=== PATIENT | female | born 1940 | race Caucasian/White ===

== ENCOUNTER → 2018-05-15 | Outpatient (CLI) | payer MEDICARE, BC ==
[~2018-05-15] MED LIST: ASPI-621 PO; ATOR10TA9 PO; INSU100C5 SQ-INSULIN; INSU100V13 SC; LEVO25TA4 PO; LIRA0.6P SC; LOSA1TAB25 PO; MULT-516 PO; PSYL174P2 PO
[2018-05-15 12:48] LABS: INTERNATIONAL NORMALIZED RATIO 1.04 (0.93-1.1); PROTHROMBIN TIME 10.8 Seconds (9.6-11.5)
[2018-05-15 13:10] LABS: ALBUMIN 3.5 g/dL (3.4-5.0); ANION GAP 9 mmol/L (5-15); CHLORIDE 103 mmol/L (98-107)
[2018-05-15 13:13] LABS: ALANINE AMINOTRANSFERASE 40 U/L (12-78); ALKALINE PHOSPHATASE 68 U/L (45-117); BILIRUBIN,TOTAL 0.5 mg/dL (0.2-1.0); CREATININE 1.36 mg/dL (0.55-1.02)
== END | disposition home or self-care (01) ==
LOC: STAR 11:26
PROVIDERS: ATTEND Orthopaedic Surgery
DX: Z01.818 Encounter for other preprocedural examination (principal); M17.11 Unilateral primary osteoarthritis, right knee; M25.562 Pain in left knee
CPT/HCPCS: 36415; 80053; 83036; 85610; 85730; 87081; 87806; 93005; G0475

== ENCOUNTER 2018-05-28 06:28 | Inpatient (IN) | payer MEDICARE, BC ==
[~2018-05-28] VITALS: Ht 160 cm; Wt 97.4 kg
[~2018-05-28 06:28] MED LIST changes: -ASPI-621 PO; +ASPI81TA45 PO
[2018-05-28] MEDS ORDERED: LACTATED RINGERS 1,000 ML IV SCH (06:40)
[2018-05-28] MEDS ORDERED: MIDAZOLAM 1 MG/ML, 2ML ONE (06:42)
[2018-05-28] MEDS ORDERED: FENTANYL PF 250 MCG/5ML ONE (06:42)
[2018-05-28] MEDS ORDERED: LIDOCAINE JELLY 2%, 30GM ONE (06:43)
[2018-05-28] MEDS ORDERED: NS + 20MEQ KCL 1,000 ML IV SCH (06:47)
[2018-05-28] MEDS ORDERED: TRANEXAMIC ACID 100 MG/ML, 10ML ONE ×4 (06:54)
[2018-05-28] MEDS ORDERED: KETOROLAC 60 MG/2 ML ONE (06:54)
[2018-05-28] MEDS ORDERED: ROPIvacaine/PF 0.2%, 20 ML ONE (06:55)
[2018-05-28] MEDS ORDERED: VANCOMYCIN 1,000 MG ONE (06:55)
[2018-05-28] MEDS ORDERED: EPINEPHRINE 1 MG/ML, 1ML ONE (06:55)
[2018-05-28] MEDS ORDERED: SODIUM CHLORIDE 0.9% 100 ML ONE (06:56)
[2018-05-28] MEDS ORDERED: HYDROmorphone 1 MG/ML, 1ML IV PRN (07:00)
[2018-05-28] MEDS ORDERED: ONDANSETRON 2MG/ML, 2ML IV PRN ×2 (07:00→08:30)
[2018-05-28] MEDS ORDERED: SENNA/DOCUSATE TABLET PO PRN (07:00)
[2018-05-28] MEDS: INSULIN REGULAR 100 UNITS/ML, 3ML VIAL SQ-INSULIN SCH ×4 (07:00→20:17)
[2018-05-28] MEDS ORDERED: OXYcodone IR 5MG TABLET PO ONE (07:00)
[2018-05-28] MEDS ORDERED: PROMETHAZINE 12.5 MG SUPP PR PRN (07:00)
[2018-05-28] MEDS ORDERED: ONDANSETRON 4 MG TABLET PO PRN (07:00)
[2018-05-28] MEDS ORDERED: GABAPENTIN 300 MG CAPSULE PO ONE (07:00)
[2018-05-28] MEDS ORDERED: ALUMINUM/MAG/SIMETHICONE 30 ML UDC PO PRN (07:00)
[2018-05-28] MEDS ORDERED: DIPHENHYDRAMINE 50 MG CAPSULE PO PRN (07:00)
[2018-05-28] MEDS ORDERED: ACETAMINOPHEN 500 MG TABLET PO ONE (07:00)
[2018-05-28] MEDS ORDERED: MAGNESIUM HYDROXIDE 8%, 30ML UDC PO PRN (07:00)
[2018-05-28] MEDS ORDERED: ACETAMINOPHEN 650 MG/20.3 ML UDC PO PRN (07:00)
[2018-05-28] MEDS ORDERED: PROMETHAZINE 25 MG/ML, 1ML IM PRN (07:00)
[2018-05-28 07:12] VITALS: BP 130/76
[2018-05-28] MEDS ORDERED: BUPIVACAINE/PF 0.5% ONE (07:56)
[2018-05-28] MEDS ORDERED: LIDOCAINE-MPF 2% ,5ML ONE (07:56)
[2018-05-28] MEDS ORDERED: CEFAZOLIN 1,000 MG ONE (08:01)
[2018-05-28] MEDS ORDERED: PROPOFOL 10 MG/ML, 20ML ONE (08:01)
[2018-05-28] MEDS ORDERED: ONDANSETRON 2MG/ML, 2ML ONE (08:01)
[2018-05-28] MEDS ORDERED: DEXAMETHASONE 4 MG/ML, 1ML ONE (08:01)
[2018-05-28] MEDS ORDERED: HYDROmorphone 2 MG/ML, 1ML IV PRN (08:30)
[2018-05-28] MEDS ORDERED: MEPERIDINE/PF 25MG/0.5ML IVPush PRN (08:30)
[2018-05-28] MEDS ORDERED: LABETALOL 5MG/ML, 20ML IV PRN (08:30)
[2018-05-28] MEDS ORDERED: PROMETHAZINE 25 MG/ML, 1ML IV PRN (08:30)
[2018-05-28] MEDS ORDERED: TRANEXAMIC ACID 1,000 MG in SODIUM CHLORIDE 0.9% 100 ML IVPB ONE (08:30)
[2018-05-28] MEDS ORDERED: MIDAZOLAM 1 MG/ML, 2ML IV PRN (08:30)
[2018-05-28] MEDS ORDERED: hydrALAzine 20 MG/ML, 1ML IV PRN (08:30)
[2018-05-28] MEDS ORDERED: EPHEDRINE 50 MG/ML, 1ML IM PRN (08:30)
[2018-05-28] MEDS ORDERED: ALBUTEROL/IPRATROPIUM 2.5MG/0.5MG, 3 ML NPPB PRN (08:30)
[2018-05-28] MEDS ORDERED: SCOPOLAMINE PATCH, 1.5MG PATCH.TD72 TD PRN (08:30)
[2018-05-28] MEDS ORDERED: OXYcodone 5 MG/5 ML ORAL.SOL UDC PO PRN (08:30)
[2018-05-28] MEDS ORDERED: FENTANYL PF 100 MCG/2ML ONE (09:13)
[2018-05-28] MEDS ORDERED: OXYcodone 5 MG/5 ML ORAL.SOL UDC ONE (09:13)
[2018-05-28] MEDS: FENTANYL PF 100 MCG/2ML IV PRN ×2 (09:15→09:32)
[2018-05-28] MEDS ORDERED: HYDROmorphone 2 MG/ML, 1ML ONE (09:42)
[2018-05-28] MEDS ORDERED: LABETALOL 5MG/ML, 20ML ONE (09:57)
[2018-05-28] MEDS: DOCUSATE 100 MG CAPSULE PO SCH ×2 (11:30→20:15)
[2018-05-28] MEDS: TAMSULOSIN 0.4 MG CAP.ER.24H PO SCH (11:30)
[2018-05-28] MEDS: CEFAZOLIN PMX 1GM/50ML 50 ML IVPB SCH ×2 (15:00→15:18)
[2018-05-28 15:05] VITALS: BP 101/59
[2018-05-28 15:40] VITALS: BP 106/63
[2018-05-28] MEDS ORDERED: ASPIRIN 81 MG TABLET CHEW ONE (17:34)
[2018-05-28 17:42] LABS: BASOPHILS # (AUTO) 0.01 x10^3/uL (0-0.1); BASOPHILS % (AUTO) 0 % (0-1); EOSINOPHILS % (AUTO) 0 % (1-7); LYMPHOCYTES % (AUTO) 7 % (22-44); MD NO; MEAN CORPUSCULAR HEMOGLOBIN 30.8 pg (27.0-34.8); MEAN CORPUSCULAR HGB CONC 33.2 g/dL (32.4-35.8); MEAN CORPUSCULAR VOLUME 92.7 fL (80-100); MEAN PLATELET VOLUME 10.3 fL (7.4-10.4); MONOCYTES # (AUTO) 0.27 x10^3/uL (0.2-0.8); MONOCYTES % (AUTO) 2 % (2-9); NEUTROPHILS % (AUTO) 91 % (42-75); PLATELET COUNT 275 x10^3/uL (130-400); RED BLOOD COUNT 4.48 x10^6/uL (3.82-5.3); RED CELL DISTRIBUTION WIDTH 14.4 % (9.6-15.2)
[2018-05-28 17:49] LABS: ALANINE AMINOTRANSFERASE 35 U/L (12-78); ANION GAP 11 mmol/L (5-15); CALCIUM 8.3 mg/dL (8.5-10.1); CHLORIDE 103 mmol/L (98-107)
[2018-05-28 17:59] LABS: ALKALINE PHOSPHATASE 61 U/L (45-117); BILIRUBIN,TOTAL 0.3 mg/dL (0.2-1.0); TOTAL PROTEIN 6.8 g/dL (6.4-8.2)
[2018-05-28] MEDS ORDERED: ASPIRIN 325 MG TABLET EC PO SCH (18:00)
[2018-05-28 20:10] VITALS: BP 105/65
[2018-05-28] MEDS: ATORVASTATIN 10 MG TABLET PO SCH (20:15)
[2018-05-28] MEDS ORDERED: CEFAZOLIN PMX 1GM/50ML 50 ML IVPB SCH (23:00)
[2018-05-29 00:28] VITALS: BP 98/58
[2018-05-29] MEDS: LEVOTHYROXINE 25 MCG TABLET PO SCH (05:34)
[2018-05-29] MEDS: ASPIRIN 81 MG TABLET EC PO SCH ×2 (05:34→17:44)
[2018-05-29] MEDS ORDERED: DEXAMETHASONE 4 MG/ML, 1ML IVPush SCH (06:00)
[2018-05-29 07:00] VITALS: BP 99/61
[2018-05-29] MEDS: INSULIN REGULAR 100 UNITS/ML, 3ML VIAL SQ-INSULIN SCH ×4 (07:00→20:27)
[2018-05-29] MEDS: OXYcodone IR 5MG TABLET PO PRN ×3 (07:36→23:35)
[2018-05-29] MEDS: LOSARTAN 50MG TABLET PO SCH (08:43)
[2018-05-29] MEDS: DOCUSATE 100 MG CAPSULE PO SCH ×2 (08:44→20:27)
[2018-05-29] MEDS: TAMSULOSIN 0.4 MG CAP.ER.24H PO SCH (08:44)
[2018-05-29] MEDS: HYDROCHLOROTHIAZIDE 12.5 MG CAPSULE PO SCH (08:44)
[2018-05-29] MEDS ORDERED: CEFAZOLIN PMX 1GM/50ML 50 ML IVPB ONE (09:00)
[2018-05-29] MEDS: SODIUM CHLORIDE 0.9% 1,000 ML IV SCH ×2 (10:06→16:11)
[2018-05-29 12:55] VITALS: BP 96/58
[2018-05-29] MEDS ORDERED: MIDAZOLAM 1 MG/ML, 5ML ONE (14:59)
[2018-05-29] MEDS ORDERED: FENTANYL PF 100 MCG/2ML ONE (14:59)
[2018-05-29] MEDS ORDERED: CEFAZOLIN 1,000 MG ONE (15:00)
[2018-05-29] MEDS ORDERED: CEFAZOLIN PMX 1GM/50ML 50 ML ONE (15:00)
[2018-05-29] MEDS ORDERED: HOLD MEDICATION MC PRN (17:00)
[2018-05-29 17:05] VITALS: BP 92/54
[2018-05-29] MEDS: ATORVASTATIN 10 MG TABLET PO SCH (20:27)
[2018-05-29] MEDS: SODIUM CHLORIDE FLUSH 10ML SYR IVF SCH (20:28)
[2018-05-29 21:00] VITALS: BP 91/52
[2018-05-30 00:59] VITALS: BP 106/63
[2018-05-30] MEDS: CEFAZOLIN PMX 1GM/50ML 50 ML IVPB SCH ×2 (01:01→09:25)
[2018-05-30] MEDS: OXYcodone IR 5MG TABLET PO PRN ×5 (02:00→20:45)
[2018-05-30 05:59] LABS: BASOPHILS # (AUTO) 0.03 x10^3/uL (0-0.1); BASOPHILS % (AUTO) 0 % (0-1); EOSINOPHILS # (AUTO) 0.18 x10^3/uL (0-0.4); EOSINOPHILS % (AUTO) 2 % (1-7); LYMPHOCYTES # (AUTO) 1.95 x10^3/uL (1-3.4); LYMPHOCYTES % (AUTO) 19 % (22-44); MD NO; MEAN CORPUSCULAR HEMOGLOBIN 30.9 pg (27.0-34.8); MEAN CORPUSCULAR HGB CONC 33.7 g/dL (32.4-35.8); MEAN CORPUSCULAR VOLUME 91.7 fL (80-100); MEAN PLATELET VOLUME 10.4 fL (7.4-10.4); MONOCYTES # (AUTO) 1.37 x10^3/uL (0.2-0.8); MONOCYTES % (AUTO) 13 % (2-9); NEUTROPHILS # (AUTO) 7.01 x10^3/uL (1.8-6.8); NEUTROPHILS % (AUTO) 67 % (42-75); PLATELET COUNT 229 x10^3/uL (130-400); RED BLOOD COUNT 3.68 x10^6/uL (3.82-5.3); RED CELL DISTRIBUTION WIDTH 14.1 % (9.6-15.2)
[2018-05-30 06:03] LABS: ALBUMIN 2.8 g/dL (3.4-5.0); ANION GAP 8 mmol/L (5-15); CALCIUM 8.3 mg/dL (8.5-10.1); CHLORIDE 105 mmol/L (98-107)
[2018-05-30] MEDS: LEVOTHYROXINE 25 MCG TABLET PO SCH (06:06)
[2018-05-30 06:07] LABS: ALANINE AMINOTRANSFERASE 26 U/L (12-78); ALKALINE PHOSPHATASE 53 U/L (45-117); BILIRUBIN,TOTAL 0.5 mg/dL (0.2-1.0); CREATININE 1.35 mg/dL (0.55-1.02); TOTAL PROTEIN 6.4 g/dL (6.4-8.2)
[2018-05-30] MEDS: ASPIRIN 81 MG TABLET EC PO SCH ×2 (06:17→16:38)
[2018-05-30 07:00] VITALS: BP 103/64
[2018-05-30] MEDS: INSULIN REGULAR 100 UNITS/ML, 3ML VIAL SQ-INSULIN SCH ×4 (07:00→21:06)
[2018-05-30] MEDS: SODIUM CHLORIDE FLUSH 10ML SYR IVF SCH ×2 (09:00→20:44)
[2018-05-30] MEDS: LOSARTAN 50MG TABLET PO SCH (09:24)
[2018-05-30] MEDS: TAMSULOSIN 0.4 MG CAP.ER.24H PO SCH (09:24)
[2018-05-30] MEDS: DOCUSATE 100 MG CAPSULE PO SCH ×2 (09:24→20:45)
[2018-05-30] MEDS: HYDROCHLOROTHIAZIDE 12.5 MG CAPSULE PO SCH (09:24)
[2018-05-30 14:00] VITALS: BP 118/68
[2018-05-30 20:01] VITALS: BP 101/62
[2018-05-30] MEDS: ATORVASTATIN 10 MG TABLET PO SCH (20:45)
[2018-05-31 00:40] VITALS: BP 104/65
[2018-05-31] MEDS: OXYcodone IR 5MG TABLET PO PRN ×4 (00:58→20:41)
[2018-05-31] MEDS: ASPIRIN 81 MG TABLET EC PO SCH ×2 (05:20→15:43)
[2018-05-31] MEDS: LEVOTHYROXINE 25 MCG TABLET PO SCH (05:20)
[2018-05-31 06:30] VITALS: BP 116/70
[2018-05-31] MEDS: TAMSULOSIN 0.4 MG CAP.ER.24H PO SCH ×2 (07:49→10:10)
[2018-05-31] MEDS: DOCUSATE 100 MG CAPSULE PO SCH ×2 (07:51→20:41)
[2018-05-31] MEDS: LOSARTAN 50MG TABLET PO SCH (07:51)
[2018-05-31] MEDS: HYDROCHLOROTHIAZIDE 12.5 MG CAPSULE PO SCH (07:52)
[2018-05-31] MEDS: SODIUM CHLORIDE FLUSH 10ML SYR IVF SCH ×2 (07:52→20:41)
[2018-05-31] MEDS: INSULIN REGULAR 100 UNITS/ML, 3ML VIAL SQ-INSULIN SCH ×4 (08:43→21:03)
[2018-05-31 13:50] VITALS: BP 101/63
[2018-05-31 20:20] VITALS: BP 100/60
[2018-05-31] MEDS: ATORVASTATIN 10 MG TABLET PO SCH (20:41)
[2018-06-01] VITALS (7 sets, daily range): BP systolic 95–138; BP diastolic 57–64
[2018-06-01] MEDS: OXYcodone IR 5MG TABLET PO PRN ×4 (00:53→21:27)
[2018-06-01] MEDS: ASPIRIN 81 MG TABLET EC PO SCH (05:33)
[2018-06-01] MEDS: LEVOTHYROXINE 25 MCG TABLET PO SCH (05:36)
[2018-06-01] MEDS: DOCUSATE 100 MG CAPSULE PO SCH ×2 (08:07→19:50)
[2018-06-01] MEDS: INSULIN REGULAR 100 UNITS/ML, 3ML VIAL SQ-INSULIN SCH ×4 (08:07→21:26)
[2018-06-01] MEDS: APIXABAN 5 MG TABLET PO SCH ×2 (08:08→19:50)
[2018-06-01] MEDS: LOSARTAN 50MG TABLET PO SCH (08:08)
[2018-06-01] MEDS: HYDROCHLOROTHIAZIDE 12.5 MG CAPSULE PO SCH (08:09)
[2018-06-01] MEDS: SODIUM CHLORIDE FLUSH 10ML SYR IVF SCH ×2 (08:09→21:27)
[2018-06-01] MEDS: TAMSULOSIN 0.4 MG CAP.ER.24H PO SCH (08:09)
[2018-06-01] MEDS: MAGNESIUM CITRATE 300ML ORAL SOL PO PRN ×2 (15:06→19:44)
[2018-06-01] MEDS ORDERED: APIX5TAB PO (15:20)
[2018-06-01] MEDS ORDERED: ONDA4TAB10 PO (15:21)
[2018-06-01] MEDS ORDERED: DOCU-131 PO (15:22)
[2018-06-01] MEDS ORDERED: TRAM50TA2 PO (15:23)
[2018-06-01] MEDS ORDERED: OXYC5CAP2 PO (15:25)
[2018-06-01] MEDS: ATORVASTATIN 10 MG TABLET PO SCH (19:50)
[2018-06-01] MEDS ORDERED: HYDROmorphone 2 MG/ML, 1ML ONE (21:14)
[2018-06-02 01:15] VITALS: BP 99/62
[2018-06-02] MEDS: OXYcodone IR 5MG TABLET PO PRN ×3 (01:34→15:22)
[2018-06-02] MEDS: LEVOTHYROXINE 25 MCG TABLET PO SCH (05:49)
[2018-06-02 05:54] VITALS: BP 123/67
[2018-06-02 07:46] VITALS: BP 118/57
[2018-06-02] MEDS: HYDROCHLOROTHIAZIDE 12.5 MG CAPSULE PO SCH (08:02)
[2018-06-02] MEDS: APIXABAN 5 MG TABLET PO SCH (08:02)
[2018-06-02] MEDS: SODIUM CHLORIDE FLUSH 10ML SYR IVF SCH (08:02)
[2018-06-02] MEDS: TAMSULOSIN 0.4 MG CAP.ER.24H PO SCH (08:03)
[2018-06-02] MEDS: LOSARTAN 50MG TABLET PO SCH (08:03)
[2018-06-02] MEDS: DOCUSATE 100 MG CAPSULE PO SCH (08:03)
[2018-06-02] MEDS: INSULIN REGULAR 100 UNITS/ML, 3ML VIAL SQ-INSULIN SCH ×2 (08:04→11:45)
[2018-06-02 13:37] VITALS: BP 104/64
== END 2018-06-02 16:50 | DRG 243 ==
LOC: OUT 06:28 → ORIP 06:47 → 4NOR 10:00 → 5SO 15:40 → OBSVTOIN 05-29 11:46
PROVIDERS: ADMIT Orthopaedic Surgery; ATTEND Orthopaedic Surgery
PROC: 0SRC069 Replacement of Right Knee Joint with Oxidized Zirconium on Polyethylene Synthetic Substitute, Cemented, Open Approach (ICD-10-PCS; principal; 2018-05-28 07:30)
PROC: 0JH606Z Insertion of Pacemaker, Dual Chamber into Chest Subcutaneous Tissue and Fascia, Open Approach (ICD-10-PCS; 2018-05-29)
PROC: 02H63JZ Insertion of Pacemaker Lead into Right Atrium, Percutaneous Approach (ICD-10-PCS; 2018-05-29)
PROC: 02HK3JZ Insertion of Pacemaker Lead into Right Ventricle, Percutaneous Approach (ICD-10-PCS; 2018-05-29)
PROC: 5A09357 Assistance with Respiratory Ventilation, Less than 24 Consecutive Hours, Continuous Positive Airway Pressure (ICD-10-PCS; 2018-05-31)
DX: I44.1 Atrioventricular block, second degree (principal); D68.69 Other thrombophilia; R00.1 Bradycardia, unspecified; M17.11 Unilateral primary osteoarthritis, right knee; I48.92 Unspecified atrial flutter; E11.9 Type 2 diabetes mellitus without complications; E78.5 Hyperlipidemia, unspecified; G47.33 Obstructive sleep apnea (adult) (pediatric); I05.0 Rheumatic mitral stenosis; I10 Essential (primary) hypertension; I48.0 Paroxysmal atrial fibrillation; M21.00 Valgus deformity, not elsewhere classified, unspecified site; Z79.01 Long term (current) use of anticoagulants; Z79.4 Long term (current) use of insulin; Z82.49 Family history of ischemic heart disease and other diseases of the circulatory system; Z85.038 Personal history of other malignant neoplasm of large intestine; Z87.891 Personal history of nicotine dependence; Z88.7 Allergy status to serum and vaccine; Z79.899 Other long term (current) drug therapy
CPT/HCPCS: 33208; 36415; 71045; 80053; 82962; 84443; 85014; 85018; 85025; 93005; 93306; 99156; 99157; C1713; C1779; C1785; C1892; G0378; J0171; J0690; J1100; J1170; J1815; J1885; J2250; J2405; J2704; J2795; J3010; J3370; J3480; J3490; C1776; J7030; J7120